=== PATIENT | male | born 1940 | race Caucasian/White ===

== ENCOUNTER 2016-07-03 04:45 | Emergency (ER) | payer MEDICARE, OTHER ==
--- NOTE | ~2016-07-03 | CR72 ---
[facility] A Service of [facility] RADIOLOGY TEXT RESULTS PATIENT: DINO CHAMBERS LOCATION: [facility] : 44 UNIT #: [id number] AGE: [address]: Juni Contreras MD SEX: M ORDER DR: [id number] [facility] [address]. [place], [place] [address] [id number] E MR#: [id number] #: [id number] NAME: DINO CHAMBERS : 1940 SEX: M STUDY DATE/TIME: 07/03/2016 4:22 UNIT: [facility] ROOM: STUDY DESCRIPTION: CR Chest Single View Portable Attending Physician: Juni Contreras M.D. Ordering Physician: Juni Contreras M.D. Primary Care Physician: No Primary Care Physician MEDICAL IMAGING REPORT This report is preliminary unless electronic signature is present EXAM AP portable chest DATE 06/23/2016 HISTORY Shortness of breath since 02:00 today. COMPARISON AP portable chest 05/29/2016 FINDINGS Heart size is borderline enlarged but appears somewhat improved compared to the 05/29/2016 examination. Suspected minimal linear subsegmental atelectasis in the right mid lung and lower lung zones. No consolidative changes are identified. No pleural effusion or pneumothorax. Pulmonary vascular distribution is normal. Surgical changes within the cervical spine. The thoracic aorta appears tortuous and ectatic but unchanged. IMPRESSION 1. Linear subsegmental atelectatic type changes in the bilateral lower lobes and right mid lung without consolidation. 2. The heart size appears improved compared to 05/29/2016. 3. Stable thoracic aortic ectasia and tortuosity. Dictated by... Shraddha Harris M.D. THIS IS AN ELECTRONICALLY VERIFIED REPORT Shraddha Harris M.D. at 07/04/2016 9:58 PM [facility] A Service of [facility] RADIOLOGY TEXT RESULTS PATIENT: DINO CHAMBERS LOCATION: [facility] : 44 UNIT #: [id number] AGE: [address]: Juni Contreras MD SEX: M ORDER DR: GI/fred TD: 07/03/2016 23:09 JOB #: [id number] MEDICAL IMAGING REPORT COPY
--- NOTE | ~2016-07-03 | EKG ---
PATIENT: DINO CHAMBERS UNIT #: [id number] Ventricular Rate: 71 BPM Atrial Rate: 71 BPM P-R Interval: 178 ms QRS Duration: 92 ms Q-T Interval: 422 ms QTC Calculation(Bezet): 458 ms P [place]: 44 degrees Calculated R [place]: -25 degrees Calculated T [place]: 11 degrees Diagnosis Line: Normal sinus rhythm Diagnosis Line: Normal ECG Diagnosis Line: No previous ECGs available Diagnosis Line: Confirmed by MELODY DODD MD ([id number]) on Diagnosis Line: 07/05/2016 12:03:01 AM INTERPRETING MD: JU OLSON
[2016-07-03 04:11] LABS: BASOPHIL% 0.8 % (0-2.5); EOSINOPHIL# 0.2 X10e3 (0-0.7); EOSINOPHIL% 2.8 % (0.0-7.0); HEMATOCRIT 41.2 % (38.0-50.0); HEMOGLOBIN 13.7 gm/dL (13.0-16.0); LYMPHOCYTE# 1.9 X10e3 (1.0-3.5); LYMPHOCYTE% 32.7 % (17.0-45.0); MEAN CELL VOLUME 97.9 FL (83-96); MEAN CORPUSCULAR HEMOGLOBIN 32.7 PG (28-34); MEAN CORPUSCULAR HGB CONC 33.4 g/dL (30-36); MEAN PLATELET VOLUME 9.5 FL (6.5-11.5); MONOCYTE# 0.7 X10e3 (0-1.0); MONOCYTE% 12.6 % (3.0-12.0); NEUTROPHIL# 2.9 X10e3 (1.5-7.1); NEUTROPHIL% 51.1 % (40-75); PLATELET COUNT 171 X10e3 (140-420); RED BLOOD COUNT 4.21 X10e (3.90-5.60); RED CELL DISTRIBUTION WIDTH 14.7 % (11.0-15.5); WHITE BLOOD COUNT 5.7 X10e3 (4.0-10.5)
[2016-07-03 04:13] LABS: DIFF IND NO
[2016-07-03 04:13] LABS: POC - TROPONIN <0.05 ng/mL (<=0.05)
[2016-07-03 04:36] LABS: ALBUMIN SERUM 3.7 g/dL (3.5-5.0); ALKALINE PHOSPHATASE 56 U/L (32-92); ALT (SGPT) 24 U/L (10-40); AST (SGOT) 19 U/L (10-42); BILIRUBIN, DIRECT 0.1 mg/dL (0.0-0.2); BILIRUBIN,INDIRECT 0.4 mg/dL (0.0-0.9); BILIRUBIN,TOTAL 0.5 mg/dL (0.2-2.0); BLOOD UREA NITROGEN 14 mg/dL (9-23); BUN/CREATININE RATIO 15.55; CALCIUM SERUM 8.9 mg/dL (8.4-10.2); CARBON DIOXIDE 29 mmol/L (22-31); CHLORIDE 102 mmol/L (100-111); CREATININE SERUM 0.9 mg/dL (0.6-1.4); GLOM FILT RATE Estimated ABOVE60 mL/min (>60); GLUCOSE FASTING 108 mg/dL (70-110); POTASSIUM 3.5 mmol/L (3.5-5.1); PROTEIN TOTAL SERUM 6.7 g/dL (6.0-8.3); SODIUM 140 mmol/L (135-145)
[~2016-07-03 04:45] MED LIST: ALBUTEROL17 GM INH; AMITRIP CDP PO; ARISTOCORT A 0.15 G1 TOP; BUSPAR PO; CAMPHO-PHENIQU6.5 GM; CARDURA PO; EC-NAPROSYN500 MG PO; HCTZ PO; KCL PO; LEVITRA PO; LISINOPRIL PO; NIFEDICAL PO; ZANTAC PO; ZOCOR PO
== END 2016-07-03 05:10 | disposition home or self-care (01) ==
LOC: CED 04:45
PROVIDERS: Emergency Medicine
DX: J44.1 Chronic obstructive pulmonary disease with (acute) exacerbation (principal); E78.5 Hyperlipidemia, unspecified; I10 Essential (primary) hypertension; F17.200 Nicotine dependence, unspecified, uncomplicated; Z88.1 Allergy status to other antibiotic agents; Z88.8 Allergy status to other drugs, medicaments and biological substances
CPT/HCPCS: 36415; 71010; 80048; 80076; 82553; 84484; 85025; 87040; 93005; 94640; 96374; 99284; J2930